=== PATIENT | female | born 1995 | race Caucasian/White ===

== ENCOUNTER 2023-12-11 14:20 | Emergency (ER) | payer OTHER, SELFPAY ==
--- NOTE | ~2023-12-11 | XR_ITS ---
EXAMINATION: XR chest 2V Exam Date/Time: 12/11/2023 17:35 CDT HISTORY: Left chest pain Comparison: None. RESULT: Lines, tubes, and devices: None. Lungs and pleura: Clear. Cardiomediastinal silhouette: Normal. Other: No acute osseous or upper abdominal finding. IMPRESSION: No acute cardiopulmonary process. Reviewed, dictated and finalized at location [facility].
[2023-12-11 14:23] VITALS: BP 137/78; PULSE 86; RESP 20; TEMP 36.5; O2SAT 100
[2023-12-11 16:35] VITALS: BP 138/77; PULSE 95; RESP 15; TEMP 37; O2SAT 99
--- NOTE | 2023-12-11 17:10 | ECG_ITS ---
Test Date: 2023-12-11 17:31:28 Measurements Intervals [place] Rate: 82 P: 62 [place]: 162 QRS: 36 QRSD: 102 T: 56 QT: 362 QTc: 423 Interpretive Statements SINUS RHYTHM WITH SINUS ARRHYTHMIA INCOMPLETE RIGHT BUNDLE BRANCH BLOCK No previous ECG available for comparison Electronically Signed On 12-12-2023 17:06:42 CDT by Dahiana Lacy M.D.
[2023-12-11 18:01] VITALS: BP 117/67; PULSE 89; RESP 14; O2SAT 100
[2023-12-11 18:04] LABS: Basophils Percent Auto 0.5 % (0.2-1.2); Eosinophils Percent Auto 0.4 % (0-4.4); Hematocrit 41.7 % (37.0-47.0); Hemoglobin 14.1 g/dL (12.0-15.0); Immature Granulocyte Absolute 0.02 K/mm3 (0.00-0.031); Immature Granulocyte Percent A 0.2 % (0-0.5); Lymphocytes Absolute Auto 0.94 K/mm3 (0.9-3.2); Lymphocytes Percent Auto 11.3 % (18.3-44.2); Mean Corpuscular HGB Conc 33.8 g/dl (32-36); Mean Corpuscular Hemoglobin 30.5 pg (26-34); Mean Corpuscular Volume 90.1 fl (80-100); Mean Platelet Volume 10.1 fl (7.4-10.4); Monocytes Absolute Auto 0.4 K/mm3 (0.1-0.6); Monocytes Percent Auto 5.2 % (2.6-8.5); Neutrophils Absolute Auto 6.9 K/mm3 (1.3-6.7); Neutrophils Percent Auto 82.4 % (45.5-73.1); Platelet Count Result 286 k/mm3 (150-375); Red Blood Count 4.63 M/mm3 (4.2-5.4); Red Cell Distribution Width 12.5 % (11.5-14.5); White Blood Count 8.3 K/mm3 (4.5-10.0)
[2023-12-11 18:14] LABS: Alanine Aminotransferase 16 U/L (6-35); Albumin Level 5.2 g/dL (3.5-5.1); Alkaline Phosphatase 72 U/L (38-126); Anion Gap 14 mmol/L (4-12); Aspartate Amino Transferase 29 U/L (14-36); Bilirubin,Total 0.4 mg/dL (0.2-1.3); Blood Urea Nitrogen 7 mg/dL (7-17); Carbon Dioxide 24 mmol/L (22-30); Chloride 103 mmol/L (98-107); Estimated CRCL calculation 123 ml/min; Estimated Glomerular Filt Rate > 60; Glucose 103 mg/dL (65-110); Phosphorus 3.7 mg/dL (2.5-4.5); Potassium 3.9 mmol/L (3.4-5.0); Sodium 141 mmol/L (137-145)
[2023-12-11] MEDS: SODIUM CHLORIDE 0.9% IV 2,000 ML 999 ML IV CONT (18:15)
[2023-12-11 18:26] LABS: Troponin I < 0.012 ng/mL (0.000-0.034)
--- NOTE | 2023-12-11 18:41 | ED.GENADULT ---
HPI - General Adult General Chief complaint: Unspecified Stated complaint: not eating enough Time Seen by Provider: 12/11/23 16:41 History of Present Illness HPI narrative: This is a 27-year-old female, with history of anorexia, who presents to the emergency department stating that she is ?not eating enough. ? She states she has been under increased stress recently and has moved to the area from [place]. She states this response is typical for her. She also complains of sharp, left-sided chest pain without obvious aggravating or alleviating factors. She denies SI/HI. She has no other complaints at this time. Related Data Allergies Allergy/AdvReac Type Severity Reaction Status Date / Time sertraline [From Zoloft] Allergy Fatigued Verified 12/11/23 16:34 Review of Systems Review of Systems: All systems reviewed & are unremarkable except as noted in HPI and below PMFSH Past Medical History Medical History Anorexia Surgical History Surgical History No significant past surgical history Social History Social History Tobacco type: e-cigarettes/vaping Alcohol intake: current Drinks per week: 3 Substance use type: marijuana Exam Narrative: GENERAL: Well-developed, well-nourished, and in no acute distress. HEAD: Normocephalic, atraumatic. EYES: PERRLA and EOMI. CHEST: Clear to auscultation. No respiratory distress. No wheezes rales or rhonchi HEART: Regular rate and rhythm. No murmur heard. Normal peripheral pulses. ABDOMEN: Soft, nontender, nondistended, normal active bowel sounds. EXTREMITIES: Normal range of motion. No edema. SKIN: Warm, dry, no rash. NEURO: Alert and oriented x3. No focal deficit. Moving all 4 limbs spontaneously PSYCH: Normal mood and affect. Course Course Emergency Course: 18:40 - EKG not concerning for ischemia. Troponin negative. Heart score 1. I do not suspect ACS. 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 In the absence of electrolyte abnormalities concern for malnutrition, will discharge. I discussed the findings and recommendations with the patient. Discussed return and emergency precautions including signs/symptoms of ACS and respiratory distress. The patient voiced understanding and agreement with the plan. All questions answered to her satisfaction. Vital Signs Vital signs: Vital Signs Temperature 97.7 F 12/11/23 14:23 Pulse Rate 86 12/11/23 14:23 Respiratory Rate 20 12/11/23 14:23 Blood Pressure 137/78 12/11/23 14:23 Pulse Oximetry 100 12/11/23 14:23 Oxygen Delivery Room Air 12/11/23 14:23 Temperature 98.6 F 12/11/23 16:35 Pulse Rate 89 12/11/23 18:01 Respiratory Rate 14 12/11/23 18:01 Blood Pressure 117/67 12/11/23 18:01 Pulse Oximetry 100 12/11/23 18:01 Oxygen Delivery Room Air 12/11/23 14:23 Medical Decision Making MDM Narrative Medical decision making narrative: Plan: Labs, EKG, troponin, chest x-ray, IV fluids, reassess Differential Diagnosis Differential Diagnosis: ACS, pleurisy, costochondritis, muscle spasm, anxiety, metabolic abnormality, anorexia, other Vital Signs Vital Signs: Vital Signs Temperature 97.7 F 12/11/23 14:23 Pulse Rate 86 12/11/23 14:23 Respiratory Rate 20 12/11/23 14:23 Blood Pressure 137/78 12/11/23 14:23 Pulse Oximetry 100 12/11/23 14:23 Oxygen Delivery Room Air 12/11/23 14:23 Temperature 98.6 F 12/11/23 16:35 Pulse Rate 89 12/11/23 18:01 Respiratory Rate 14 12/11/23 18:01 Blood Pressure 117/67 12/11/23 18:01 Pulse Oximetry 100 12/11/23 18:01 Oxygen Delivery Room Air 12/11/23 14:23 Lab Data 12/11/23 17:59 12/11/23 17:59 Labs: Lab R
[2023-12-11 19:15] VITALS: BP 127/66; PULSE 99; RESP 14; O2SAT 100
== END 2023-12-11 19:16 | disposition home or self-care (01) ==
PROVIDERS: Emergency Provider Preventive Medicine Aerospace Medicine; PCP Internal Medicine
DX: R07.89 Other chest pain (principal); F17.290 Nicotine dependence, other tobacco product, uncomplicated
CPT/HCPCS: 36415; 71046; 80053; 83735; 84100; 84484; 85025; 93005; 96360; 99284; J7030

== ENCOUNTER 2023-12-20 07:01 | Emergency (ER) | payer OTHER, SELFPAY ==
[2023-12-20 07:11] VITALS: BP 115/71; PULSE 80; RESP 16; TEMP 36.8; O2SAT 100
--- NOTE | 2023-12-20 07:13 | ED.ALLEREA ---
HPI - Allergic Reaction General Chief complaint: Allergic Reaction Stated complaint: allergic reaction Time Seen by Provider: 12/20/23 07:05 History of Present Illness HPI narrative: 27-year-old female presenting to the emergency department for evaluation for suspected allergic reaction. Patient start taking nystatin last night for oral thrush and felt increased burning and itching in her mouth. Patient states she also developed some left facial swelling and also developed some associated shortness of breath. Patient did have a hydroxyzine prior to arrival. Related Data Allergies Allergy/AdvReac Type Severity Reaction Status Date / Time sertraline [From Zoloft] Allergy Fatigued Verified 12/11/23 16:34 Review of Systems Review of Systems: All systems reviewed & are unremarkable except as noted in HPI and below PMFSH Past Medical History Medical History Anorexia Surgical History Surgical History No significant past surgical history Social History Social History Tobacco type: e-cigarettes/vaping Alcohol intake: current Drinks per week: 3 Substance use type: marijuana Exam Narrative: APPEARANCE: Well appearing, no pain, no distress, well-nourished. HEAD: normocephalic, atraumatic. EYES: PERRLA/EOMI, conjunctivae clear. NOSE: Normal no drainage EARS:TMS clear with good light reflex. THROAT: Pharynx clear, no exudate. NECK: Supple. No adenopathy, no masses. RESPIRATORY: Airway patent, respirations nonlabored. Clear to auscultation bilaterally, no rales, rhonchi, wheezing. CARDIOVASCULAR: Regular rate and rhythm without murmurs rubs or gallops. ABDOMINAL: Soft, nontender, nondistended, normal bowel sounds MUSCULOSKELETAL: Moves all extremities. Strength/ROM intact, No edema, No calf tenderness. NEURO: Alert. Cranial nerves II through XII intact. Grossly intact SKIN: Warm, dry. Normal Color Course Course Emergency Course: Patient did feel improved with treatment. Vital Signs Vital signs: Vital Signs Temperature 98.3 F 12/20/23 07:11 Pulse Rate 80 12/20/23 07:11 Respiratory Rate 16 12/20/23 07:11 Blood Pressure 115/71 12/20/23 07:11 Pulse Oximetry 100 12/20/23 07:11 Oxygen Delivery Room Air 12/20/23 07:11 Temperature 97.9 F 12/20/23 08:47 Pulse Rate 80 12/20/23 08:47 Respiratory Rate 16 12/20/23 08:47 Blood Pressure 120/74 12/20/23 08:47 Pulse Oximetry 100 12/20/23 08:47 Oxygen Delivery Room Air 12/20/23 07:11 MDM - Allergic Reaction MDM Narrative Medical decision making narrative: 27-year-old female presenting to the emergency department for evaluation for suspected allergic reaction to nystatin. Patient states he did feel improved with breathing treatment. Patient was treated with a dose of Solu-Medrol Benadryl and famotidine. On re-evaluation patient states symptoms have resolved. Due to patient guarding being treated for thrush she will not be started on steroids. Patient was advised to withhold the statin and to take Benadryl as needed for intermittent symptoms. Patient will also be provided an albuterol inhaler. All questions concerns were addressed. Patient states she will have close follow-up with her primary care physician. Differential Diagnosis Differential diagnosis: Likely anaphylaxis, allergic reaction, angioedema, contact dermatitis, adverse reaction to drug and urticaria Discharge Plan Discharge Clinical Impression: Allergic reaction Patient Disposition: Home, Self-Care Condition: Stable Instructions: Antibiotic Form, Allergies (ED) Additional Instructions: Benadryl as needed for intermittent itching or allergic symptoms. Albuterol inhaler for cough wheezing or shortness of breath. Have close follow-up with your primary care physician. Prescrip
[2023-12-20] MEDS: methylPREDNISolone SOD SUCC 125 MG VIAL IV PUSH (07:22)
[2023-12-20] MEDS: FAMOTIDINE 20 MG/2 ML VIAL IV PUSH (07:23)
[2023-12-20] MEDS: diphenhydrAMINE HCl INJ 50 MG/ML VIAL 25 MG IV PUSH (07:23)
[2023-12-20] MEDS: ALBUTEROL SULFATE NEB 2.5 MG/3 ML INH INHALATION (07:52)
[2023-12-20 07:54] VITALS: PULSE 86; RESP 20
[2023-12-20 08:00] VITALS: BP 116/78; PULSE 80; RESP 16; TEMP 36.6; O2SAT 100
[2023-12-20 08:01] VITALS: PULSE 73; RESP 20
[2023-12-20 08:47] VITALS: BP 120/74; PULSE 80; RESP 16; TEMP 36.6; O2SAT 100
== END 2023-12-20 08:59 | disposition home or self-care (01) ==
PROVIDERS: Emergency Provider Emergency Medicine; PCP Internal Medicine
DX: T78.40XA Allergy, unspecified, initial encounter (principal); F17.290 Nicotine dependence, other tobacco product, uncomplicated
CPT/HCPCS: 94640; 96374; 96375; 99284; J1200; J2919